=== PATIENT | female | born 1965 | race Hispanic/Latino ===

== ENCOUNTER 2023-05-06 07:32 | Day surgery (SDC) | payer BC ==
[2023-05-03 11:37] VITALS: BMI 31.0
[2023-05-06] MEDS ORDERED: Insulin Regular 300 UNITS/3 ML VIAL ONE (08:20)
[2023-05-06] MEDS ORDERED: Lidocaine 1% PF 5 ML VIAL ONE (09:13)
[2023-05-06] MEDS ORDERED: PROPOFOL 40 ML ONE (09:13)
== END 2023-05-06 10:10 | disposition home or self-care (01) ==
LOC: CSHSDC 07:32
PROVIDERS: ATTEND Internal Medicine Gastroenterology
PROC: 0DJD8ZZ Inspection of Lower Intestinal Tract, Via Natural or Artificial Opening Endoscopic (ICD-10-PCS; principal; 2023-05-06)
DX: Z12.11 Encounter for screening for malignant neoplasm of colon (principal); K57.30 Diverticulosis of large intestine without perforation or abscess without bleeding; K64.8 Other hemorrhoids; E11.9 Type 2 diabetes mellitus without complications; I10 Essential (primary) hypertension; E78.5 Hyperlipidemia, unspecified; Z88.8 Allergy status to other drugs, medicaments and biological substances; Z79.4 Long term (current) use of insulin
CPT/HCPCS: 36416; J1815; J2704